=== PATIENT | female | born 1965 | race Caucasian/White ===

== ENCOUNTER 2022-05-15 15:09 | Outpatient (CLI) | payer BC, SELFPAY ==
--- NOTE | 2022-05-15 15:30 | CRLHL7_ITS ---
For Patients: As a result of the Century Cures Act, medical imaging exams and procedure reports are released immediately into your electronic medical record. You may view this report before your referring provider. If you have questions, please contact your health care provider. Indication: Cervical spine pain. Technique: MRI of the cervical spine was performed without the use of intravenous contrast. Comparison: Cervical spine radiograph 05/08/2022. Findings: There is T1 marrow infiltration with STIR hyperintensity involving the C3 vertebral body, with slight expansion. STIR hyperintensity extending into the spinous process. The remaining vertebral bodies are preserved. Mild to moderate multilevel disc height loss and desiccation. No abnormal cord signal. Partially evaluated 8 mm lesion within the left cerebellum, with adjacent T2 signal change. Partially evaluated right lung apical opacity. C2-3: No spinal canal or neural foraminal narrowing. C3-4: No spinal canal or neural foraminal narrowing. C4-5: Trace retrolisthesis. Disc bulge with minimal spinal canal narrowing. Moderate right and mild left neural foraminal narrowing secondary to uncovertebral joint and facet hypertrophy. C5-6: Trace retrolisthesis. Disc bulge with mild spinal canal narrowing. Moderately severe right and moderate left neural foraminal narrowing secondary to uncovertebral joint and facet hypertrophy. Potential impingement of the right C6 nerve. C6-7: Disc bulge with minimal spinal canal narrowing. Moderate right and [id number] left neural foraminal narrowing secondary to uncovertebral joint and facet hypertrophy. C7-T1: No spinal canal or neural foraminal narrowing. Impression: 1. Diffuse T1 hypointense infiltration with STIR hyperintensity involving the C3 vertebral body and spinous process. Partially evaluated left cerebellar lesion with adjacent T2 signal change. Constellation of findings are worrisome for metastatic disease. Dedicated MRI of the brain with contrast as well as postcontrast imaging of the cervical spine are recommended for further assessment. 2. Partially evaluated right lung apical opacity. Dedicated chest imaging with CT chest is recommended, given additional findings. 3. At C4-5, moderate right and mild left neural foraminal narrowing. 4. At C5-6, mild spinal canal with moderately severe right and moderate left neural foraminal narrowing. Potential impingement of the right C6 nerve. 5. At C6-7, moderate right and [id number] left neural foraminal narrowing. Dictated by Byron Wilkes MD @ 05/16/2022 1:22:16 PM (Electronically Signed)
== END 2022-05-15 15:10 | disposition home or self-care (01) ==
PROVIDERS: PCP Physician Assistant; Visit Provider Family Medicine
DX: M54.2 Cervicalgia (principal); M50.221 Other cervical disc displacement at C4-C5 level; M50.222 Other cervical disc displacement at C5-C6 level
CPT/HCPCS: 72141

== ENCOUNTER 2022-07-26 07:46 | Emergency (ER) | payer BC, SELFPAY ==
[2022-07-26] VITALS (29 sets, daily range): BP systolic 84–116; BP diastolic 48–76; PULSE 121–132; RESP 16–20; TEMP 36.4; O2SAT 95–100; BMI 24.7
--- NOTE | 2022-07-26 08:03 | ED_ITS ---
HPI - General Adult General Time Seen by Provider: 08:04 Date Seen: 07/26/22 Chief complaint: Shortness of Breath/Dyspnea Stated complaint: Trouble breathing Time Seen by Provider: 07/26/22 08:02 Source: patient, RN notes reviewed and old records reviewed Mode of arrival: ambulatory Limitations: no limitations History of Present Illness HPI narrative: This 57-year-old female accompanied by a gentleman whom I presume is her coming in with concern of her respiratory status. She has known stage IV lung cancer reportedly metastatic to liver and brain. Her notes that she is supposed to start chemotherapy this next week, start her steroids tomorrow and he is concerned that maybe she should be. She has had more generalized body pain that has been over 2 weeks, nothing acute over the last couple days. They have delighted for her to use. She occasionally will feel short of breath sometimes but right at this moment she is not. Her came home from work last [place] in noted just lying in bed she seemed like she was breathing abnormally. What I am observing is her doing a lot of signing, deep breathing and tachypneic. Her blood pressure is low and her pulse is in the 130s. In review of her oncology record from July 21, I do not see blood pressure listed but she was tachycardic in the 140s. She admits that eating and drinking have not been the best. She does not have any abdominal pain but just has anorexia. No acute nausea or vomiting. They do not feel that there has been any infection, no fevers. She has some baseline occasional cough but nothing new or worsening. She has no chest pain. Related Data Home Medications Medication Instructions Recorded Confirmed acetaminophen 500 mg tablet 500 - 1,000 mg PO Q6H PRN 07/21/22 07/26/22 (Tylenol Extra Strength) hydromorphone 2 mg tablet 1 mg PO Q4-6H PRN 07/21/22 07/26/22 ondansetron HCl 8 mg tablet 8 mg PO Q12H PRN 07/21/22 07/26/22 pantoprazole 40 mg tablet,delayed 40 mg PO QDAY 07/21/22 07/26/22 release (Protonix) sennosides 8.6 mg tablet (senna) 8.6 mg PO BID 07/21/22 07/26/22 Previous Rx's Medication Instructions Recorded dexamethasone 4 mg tablet 4 mg PO BID #30 tabs 07/21/22 folic acid 1 mg tablet 1 mg PO QDAY #90 tabs 07/21/22 prochlorperazine maleate 10 mg 10 mg PO TID PRN nausea and 07/21/22 tablet (Compazine) vomiting #30 tabs Allergies Allergy/AdvReac Type Severity Reaction Status Date / Time doxycycline AdvReac Severe Joints Verified 07/26/22 12:47 swell oxycodone AdvReac Intermediate vomitting/upset Verified 07/26/22 12:47 stomach Review of Systems Status of ROS: Reports: 10 or more systems reviewed and unremarkable except as noted in History and below [facility] Medical History (Updated 07/26/22 @ 13:19 by Ami Han MD) Tendonitis Family History (Updated 05/08/22 @ 14:02 by Zoë Mccarty RN) Other Diabetes Stroke Social History Narrative: Former full-time work in [employer] Smoking Status: Former smoker Do you use any of these nicotine containing products: None Second hand tobacco smoke exposure: No How often do you have a drink containing alcohol: never How often do you have six or more drinks on one occasion: Never AUDIT-C Alcohol total score: 0 Non-prescribed substance use: denies use Exam Const: Vital Signs, click to edit/add: Vital Signs - 24 hr 07/26/22 07:52 07/26/22 08:56 07/26/22 09:00 Temperature 97.5 F L Pulse Rate Pulse Rate [Right Pulse Oximeter] 131 H 122 H Respiratory Rate 20 20 Blood Pressure Blood Pressure [Ri ght Upper Arm] 89/57 L 98/54 L Pulse Oximetry 98 96 100 Oxygen Delivery Me thod Room Air Room Air 07/26/22 08:53 07/26/22 08:30 07/26/22 09:00 Temperature Pulse Rate Pulse Rate [Right Pulse Oximeter] 126 H 130 H 131 H Respiratory Rate 17 16 Blood Pressure Blood Pressure [Ri ght Upper Arm] 96/51 L 84/48 L 85/55 L Pulse Oximetry 99 100 97 Oxygen Delivery Me thod Room Air Room Air Room Air 07/26/22 08:03 07/26/22 08:04 07/26/22 08:30 Temperature Pulse Rate 130 H 132 H 129 H Pulse Rate [Right Pulse Oximeter] Respiratory Rate Blood Pressure 85/55 L Blood Pressure [Ri ght Upper Arm] Pulse Oximetry 95 95 100 Oxygen Delivery Me thod 07/26/22 08:32 07/26/22 08:54 07/26/22 09:00 Temperature Pulse Rate 130 H 126 H 123 H Pulse Rate [Right Pulse Oximeter] Respiratory Rate Blood Pressure 84/48 L 96/51 L Blood Pressure [Ri ght Upper Arm] Pulse Oximetry 99 99 99 Oxygen Delivery Me thod 07/26/22 09:01 07/26/22 09:30 07/26/22 09:31 Temperature Pulse Rate 123 H 123 H 122 H Pulse Rate [Right Pulse Oximeter] Respiratory Rate Blood Pressure 98/54 L 115/59 L Blood Pressure [Ri ght Upper Arm] Pulse Oximetry 97 98 98 Oxygen Delivery Me thod 07/26/22 10:16 07/26/22 10:18 Temperature Pulse Rate 124 H 121 H Pulse Rate [Right Pulse Oximeter] Respiratory Rate Blood Pressure 105/66 Blood Pressure [Ri ght Upper Arm] Pulse Oximetry 100 100 Oxygen Delivery Me thod Patient is lying in bed, awake but sleepy appearing. She is cachectic, tachypneic. She is observed to be tachycardic with lower blood pressure. Documenting provider has reviewed patient's vital signs: yes Common normals: oriented x3 and no limitations General appearance: cooperative, comfortable, well kempt and frail appearing Nutritional appearance: cachectic HENMT: Common normals: normocephalic, head/scalp atraumatic, hearing grossly normal bilaterally, external nose normal and nasal mucous membranes and turbinates normal Head and scalp: normocephalic and atraumatic Nose: external nose normal and nasal mucous membranes and turbinates normal Other: Speech is normal, she is appropriate but tired. Eye: Common normals: PERRL, EOMs intact bilaterally, conjunctivae normal and no scleral icterus Conjunctiva: conjunctiva(e) normal Pupil: PERRL Neck & C-Spine: Common normals: full ROM, no lymphadenopathy, supple, no meningeal signs, no JVD and thyroid normal Thyroid: thyroid normal Chest: Common normals: inspection of chest normal and palpation of chest normal Resp: Common normals: no retractions, no use of accessory muscles and clear to auscultation bilaterally (Maybe diminished breath sounds at the right base posteriorly but otherwise ) Auscultation: clear to auscultation bilaterally (Maybe diminished breath sounds at the right base posteriorly but otherwise ) Other: Is tachypneic but states she is not feeling short of breath. Is able to pull herself up in bed so that I am listening to her lungs posteriorly Cardio: Common normals: no JVD, regular rhythm, S1 normal heart sound, S2 normal heart sound, no gallops, no clicks and no murmurs Rate: tachycardic Rhythm: regular rhythm Heart sounds: S1 normal and S2 normal GI: Common normals: Normal to inspection, nondistended, normoactive bowel sounds present, soft to palpation, non-tender, no hepatosplenomegaly and no masses Palpation: soft and no hepatosplenomegaly Extremity: Common normals: normal to inspection, full ROM, normal capillary refill, no joint enlargement, no clubbing, cyanosis or edema, no calf tenderness and no pedal edema Neuro: Common normals: oriented x3, moves all extremities and no focal motor deficits Meningeal signs: no meningeal signs Speech: speech normal Psych: Appearance: well kempt Course Course Hospital Course: Have reviewed with patient tender has been that my presumption is she is quite dehydrated with metabolic acidosis and likely compensating appropriately with respiratory changes. We reviewed hyperventilation is a compensatory mechanism for metabolic acidosis with which she likely has been dehydrated. We will con racing board marker alternate diagnoses, will be getting a D-dimer to screen for need for chest CT PE protocol. If her tachycardia is largely resolving with fluid management, is very likely that this is just significant dehydration. There does not seem to be a focus of infection but will consider this in her evaluation as well. We will be doing a full complement of blood work. We will start with a screening portable chest x-ray and proceed with advance imaging if indicated in our workup. She is not hypoxic in when I was in with her her pulse oximetry was showing 96-97% with a good waveform. Reevaluation(s) Reevaluation #1: [place] [address] [place]. Have ordered urinalysis, blood cultures. We also do screening COVID in case she does need hospitalization. Have reviewed that with them, they understand with elevated white count an occult infection is certainly concerning here. Time: 09:00 Reevaluation #2: Provided the CT report to patient and her . She is having increased back pain. On talking to her and her further. He questioned if the L1 compression fracture would be consistent with a low back pain. I did review with him it was. Initially he was telling me that she just was seeming to have generalized body pain but it certainly does sound like there was definite component of low back pain. I reviewed with them that her inflammatory markers are quite high, white count elevated. Urine may be a possible source of infection but I worry there may be something occult that were missing. I am going to talk to Oncology through [facility] regarding her. I did a bit later add on lipase, uric acid, phosphorus after further considering this case, reading about tumor lysis. Time: 11:52 Consultations Consultation #1: Reviewed case with radiologist Dr. Granados. Patient's creatinine is elevated today but was normal on the 10th. Her BUN is quite elevated today and again was normal on the 10th. Reviewed that her D-dimer is elevated at 4.6. He agrees proceeding with contrast despite elevated creatinine today. We will continue hydrating her. Time: 09:50 Consultation #2: Spoke with Gladys BARAJAS at [facility] regarding transfer. She stated they were on divert. I did ask 2 consult Oncology. They did subsequently call me back, also maryanna jerome in the CCU custom decorating consultant For the day. The total phone call was 24 minutes. They are concerned about sepsis, also concerned about tumor lysis. I do not have rasburicase here. We did discuss antibiotics, that it already initiated cefepime. They did want me to proceed with vancomycin and give her 100 mg IV hydrocortisone given her adrenal lesions. The critical care officer was Dr. Wei but the accepting ICU physician is Dr. Mercer whom did call me back after the initial call. He wanted her map above 65. I did calculated in on her last pressures it was 79. Thus we will not initiate nor epinephrine. They would like her down there as quickly as possible. I have told her she will be going to [facility]. Her liver functions have come back excessively elevated but normal bilirubins. She does have increased tumor burden, thus the concern for tumor lysis with the subsequent knowledge that her uric acid and phosphate are quite high. Her potassium and calcium are normal however. She really needs to be in a multi specialty facility, we cannot provide the adequate care she needs. During patient's stay, I would assign the last 2 hours critical care which did encompass consultation and arrangement with the specialist/referral center. Time: 11:55 Vital Signs Vital signs: Initial Vital Signs Temperature 97.5 F L 07/26/22 07:52 Temperature Source Temporal Artery Scan 07/26/22 07:52 Pulse Rate 131 H 07/26/22 07:52 Pulse Rhythm 07/26/22 07:52 Respiratory Rate 20 07/26/22 07:52 Blood Pressure 89/57 L 07/26/22 07:52 Blood Pressure Mean 67 07/26/22 07:52 Blood Pressure Position Semi-Fowlers 07/26/22 07:52 Pulse Oximetry 98 07/26/22 07:52 Oxygen Delivery Method 07/26/22 07:52 Vital Signs Temperature 97.5 F L 07/26/22 07:52 Pulse Rate 131 H 07/26/22 07:52 Respiratory Rate 20 07/26/22 07:52 Blood Pressure 89/57 L 07/26/22 07:52 Pulse Oximetry 98 07/26/22 07:52 Oxygen Delivery Method 07/26/22 07:52 Temperature 97.5 F L 07/26/22 07:52 Pulse Rate 121 H 07/26/22 10:18 Respiratory Rate 16 07/26/22 09:00 Blood Pressure 105/66 07/26/22 10:18 Pulse Oximetry 100 07/26/22 10:18 Oxygen Delivery Method 07/26/22 09:00 Medical Decision Making Lab Data Lab results reviewed: Yes I reviewed the patient's lab results Labs: Lab Results 07/26/22 07/26/22 07/26/22 Range/Units 08:35 08:35 08:35 WBC 27.50 H* (4.50-11.00) K/uL RBC 3.38 L (4.00-5.20) m/uL Hgb 8.9 L (12.0-16.0) gm/dL Hct 28.5 L (33.0-51.0) % MCV 84 (80-100) fL MCH 26 (26-34) pg MCHC 31 L (32-36) gm/dL RDW Coeff of Gumaro 18.4 H (11.5-15.5) % Plt Count 444 H (140-440) K/uL Neut % (Auto) 89.0 H (42.0-72.0) % Lymph % (Auto) 3.7 L (20-44) % [place] % (Auto) 2.1 (0.0-11.0) % Eos % (Auto) 0.0 (0.0-7.0) % Baso % (Auto) 0.0 (0.0-3.0) % Neut # (Auto) 24.50 H (1.7-7.0) K/uL Lymph # (Auto) 1.00 (0.90-2.90) K/uL Cors[place] # (Auto) 0.60 (0.00-0.90) K/UL Eos # (Auto) 0.00 (0.00-0.50) K/uL Baso # (Auto) 0.00 (0.00-0.30) K/uL Abs Immat Gran (auto) 1.43 H (0.00-0.30) K/uL Diff Slide Review Acceptable Review (Acceptable) D-Dimer Quant (PE/DVT) 4.60 H (0.00-0.50) ug/ml Sodium 135 (135-149) mmol/L Potassium 4.5 (3.6-5.1) mmol/L Chloride 97 (96-114) mmol/L Carbon Dioxide 15 L (20-32) mmol/L BUN 53 H (7-30) mg/dL Creatinine 2.4 H (0.5-1.5) mg/dL Estimated Creat Clear 21.79 Estimated GFR 23 ml/min Glucose 99 (60-115) mg/dL Lactate (0.5-1.9) mmol/L Uric Acid 13.7 H (2.2-8.4) mg/dL Calcium 9.1 (8.4-10.6) mg/dL Phosphorus 8.1 H* (2.5-4.5) mg/dL Total Bilirubin 0.7 (0.1-1.5) mg/dL AST 2049 H (12-35) U/L ALT 1375 H (4-35) U/L Alkaline Phosphatase 186 H (40-150) U/L C-Reactive Protein 6.9 H (0.5-1.0) mg/dL NT-Pro-B Natriuret Pep 1930 H (0-125) PG/mL Total Protein 6.9 (6.0-8.3) g/dL Albumin 3.3 (3.3-5.0) g/dL Lipase 236 (23-300) U/L Procalcitonin > 100.00 H (<0.50) ng/mL Urine Color (Yellow) Urine Appearance (Clear) Urine pH (5.0-8.5) Ur Specific [place] (1.000-1.030) Urine Protein (Negative) Urine Glucose (UA) (Negative) Urine Ketones (Negative) Urine Blood (Negative) Urine Nitrite (Negative) Urine Bilirubin (Negative) Urine Urobilinogen (0.2-1.0) Ur Leukocyte Esterase (Negative) Urine RBC (0-2) Urine WBC (0-5) Ur Squamous Epith Cells (None-Few) Urine Bacteria (None) SARS-CoV-2 (PCR) (Negative) POC Troponin I (0.01-0.04) ng/ml 07/26/22 07/26/22 07/26/22 Range/Units 08:35 08:35 09:05 WBC (4.50-11.00) K/uL RBC (4.00-5.20) m/uL Hgb (12.0-16.0) gm/dL Hct (33.0-51.0) % MCV (80-100) fL MCH (26-34) pg MCHC (32-36) gm/dL RDW Coeff of Gumaro (11.5-15.5) % Plt Count (140-440) K/uL Neut % (Auto) (42.0-72.0) % Lymph % (Auto) (20-44) % Corson % (Auto) (0.0-11.0) % Eos % (Auto) (0.0-7.0) % Baso % (Auto) (0.0-3.0) % Neut # (Auto) (1.7-7.0) K/uL Lymph # (Auto) (0.90-2.90) K/uL Corson # (Auto) (0.00-0.90) K/UL Eos # (Auto) (0.00-0.50) K/uL Baso # (Auto) (0.00-0.30) K/uL Abs Immat Gran (auto) (0.00-0.30) K/uL Diff Slide Review (Acceptable) D-Dimer Quant (PE/DVT) (0.00-0.50) ug/ml Sodium (135-149) mmol/L Potassium (3.6-5.1) mmol/L Chloride (96-114) mmol/L Carbon Dioxide (20-32) mmol/L BUN (7-30) mg/dL Creatinine (0.5-1.5) mg/dL Estimated Creat Clear Estimated GFR ml/min Glucose (60-115) mg/dL Lactate 1.8 (0.5-1.9) mmol/L Uric Acid (2.2-8.4) mg/dL Calcium (8.4-10.6) mg/dL Phosphorus (2.5-4.5) mg/dL Total Bilirubin (0.1-1.5) mg/dL AST (12-35) U/L ALT (4-35) U/L Alkaline Phosphatase (40-150) U/L C-Reactive Protein (0.5-1.0) mg/dL NT-Pro-B Natriuret Pep (0-125) PG/mL Total Protein (6.0-8.3) g/dL Albumin (3.3-5.0) g/dL Lipase (23-300) U/L Procalcitonin (<0.50) ng/mL Urine Color (Yellow) Urine Appearance (Clear) Urine pH (5.0-8.5) Ur Specific [place] (1.000-1.030) Urine Protein (Negative) Urine Glucose (UA) (Negative) Urine Ketones (Negative) Urine Blood (Negative) Urine Nitrite (Negative) Urine Bilirubin (Negative) Urine Urobilinogen (0.2-1.0) Ur Leukocyte Esterase (Negative) Urine RBC (0-2) Urine WBC (0-5) Ur Squamous Epith Cells (None-Few) Urine Bacteria (None) SARS-CoV-2 (PCR) Negative SARS-CoV-2 (Negative) POC Troponin I 0.01 (0.01-0.04) ng/ml 07/26/22 Range/Units 10:30 WBC (4.50-11.00) K/uL RBC (4.00-5.20) m/uL Hgb (12.0-16.0) gm/dL Hct (33.0-51.0) % MCV (80-100) fL MCH (26-34) pg MCHC (32-36) gm/dL RDW Coeff of Gumaro (11.5-15.5) % Plt Count (140-440) K/uL Neut % (Auto) (42.0-72.0) % Lymph % (Auto) (20-44) % Corson % (Auto) (0.0-11.0) % Eos % (Auto) (0.0-7.0) % Baso % (Auto) (0.0-3.0) % Neut # (Auto) (1.7-7.0) K/uL Lymph # (Auto) (0.90-2.90) K/uL Corson # (Auto) (0.00-0.90) K/UL Eos # (Auto) (0.00-0.50) K/uL Baso # (Auto) (0.00-0.30) K/uL Abs Immat Gran (auto) (0.00-0.30) K/uL Diff Slide Review (Acceptable) D-Dimer Quant (PE/DVT) (0.00-0.50) ug/ml Sodium (135-149) mmol/L Potassium (3.6-5.1) mmol/L Chloride (96-114) mmol/L Carbon Dioxide (20-32) mmol/L BUN (7-30) mg/dL Creatinine (0.5-1.5) mg/dL Estimated Creat Clear Estimated GFR ml/min Glucose (60-115) mg/dL Lactate (0.5-1.9) mmol/L Uric Acid (2.2-8.4) mg/dL Calcium (8.4-10.6) mg/dL Phosphorus (2.5-4.5) mg/dL Total Bilirubin (0.1-1.5) mg/dL AST (12-35) U/L ALT (4-35) U/L Alkaline Phosphatase (40-150) U/L C-Reactive Protein (0.5-1.0) mg/dL NT-Pro-B Natriuret Pep (0-125) PG/mL Total Protein (6.0-8.3) g/dL Albumin (3.3-5.0) g/dL Lipase (23-300) U/L Procalcitonin (<0.50) ng/mL Urine Color Brown A (Yellow) Urine Appearance Clear (Clear) Urine pH 5.0 (5.0-8.5) Ur Specific [place] 1.025 (1.000-1.030) Urine Protein 1+ A (Negative) Urine Glucose (UA) Negative (Negative) Urine Ketones 1+ A (Negative) Urine Blood Negative (Negative) Urine Nitrite Negative (Negative) Urine Bilirubin 2+ A (Negative) Urine Urobilinogen 0.2 (0.2-1.0) Ur Leukocyte Esterase 1+ A (Negative) Urine RBC 0-2 (0-2) Urine WBC 10-25 A (0-5) Ur Squamous Epith Cells Few (None-Few) Urine Bacteria Moderate A (None) SARS-CoV-2 (PCR) (Negative) POC Troponin I (0.01-0.04) ng/ml Imaging Data Chest x-ray: Attestation: I have reviewed the pertinent imaging results. My impression: Did review patient's chest x-ray before radiology report in do see fluid and changes on the right side. In review of her records, I a do see notation that her cancer is known to be on the right side. Radiologist's impression: Patient: DEVI FRIED Facility:?[facility] Patient ID:?[id number] Site Patient ID:?[id number]. Site :?[id number] Study:?XRay Chest PORTABLE-07/26/2022 8:31:46 AM Ordering Physician:Latasha Mueller Final Report: INDICATION: Shortness of breath. History of lung cancer. COMPARISON: None. FINDINGS: A portable AP view of the chest was obtained. The cardiac silhouette and pulmonary vasculature are within normal limits. The left lung is clear. There is a small right pleural effusion. There is a masslike opacity in the right mid to lower lung medially. There is no pneumothorax. IMPRESSION: Small right pleural effusion. Masslike opacity in the right mid to lower lung medially. This could be the patient`s known lung cancer and/or consolidation. Dictated by Levi Bettencourt MD @ 07/26/2022 8:36:55 AM (Electronic Signature) CT Chest/Ab/Pelvis: Attestation: I have reviewed the pertinent imaging results. Radiologist's impression: Patient: DEVI FRIED Facility:?[facility] Patient ID:?[id number] Site Patient ID:?[id number]. Site :?[id number] Study:?CT Chest/Abd/Pelvis PE A/P WITH 95CC ISOVUE 370-07/26/2022 10:25:30 AM Ordering Physician:Latasha Mueller Final Report: INDICATION: Shortness of breath and elevated white blood cell count and D-dimer. History of stage IV lung cancer. TECHNIQUE: CT chest PE protocol and CT abdomen and pelvis acquired with IV contrast. 95 mL IV Isovue 370. COMPARISON: CT chest, abdomen and pelvis 06/03/2022. FINDINGS: Chest: There is no acute pulmonary embolism. Heart size is normal. Thoracic aorta and main pulmonary artery are normal in caliber. There are enlarged mediastinal and right hilar lymph nodes. Similar to the prior exam. No axial or left hilar lymphadenopathy. Redemonstrated large complex heterogeneous the enhancing mass in the right lower lobe measuring 8.7 x 7.6 cm (series 12, image 113), unchanged causing severe narrowing of the right lower lobe pulmonary artery and occlusion of the right l ower lobe bronchus. There is a moderate pleural effusion which is decreased in size compared to the previous exam. Compared to the prior exam the right middle lobe is better aerated. There is a 1.8 x 1.5 cm nodule in the right upper lobe (series 13, image 53), previously 1.2 x 1.2 cm. Multiple nodules in the left lower lobe have also increased in size. The largest is in the right lower lobe and measures 1.8 x 1.1 cm, previously 1 x 0.7 cm. There is a new 3 mm nodule in the left upper lobe (series 13, image 57). Abdomen and Pelvis: Hepatic metastases are increased in size. The larger in the right lobe of the liver measures 4.2 x 3.9 cm, previously 2 x 1.4 cm. There is a new adjacent 1 cm metastasis. Bilateral adrenal masses have increased in size. The mass on the left measures 6 x 4.3 cm (series 8, image 28) and on the right measures 4.4 x 2.1 cm (series 8, image 30). The gallbladder is distended but there is no evidence of inflammation or radiopaque stone. Calcified splenic granulomata. Pancreas enhances homogeneously. No bowel obstruction or inflammation. No abdominal ascites or free air. Moderate atherosclerotic calcification of the abdominal aorta. No abdominal or pelvic lymphadenopathy. The urinary bladder is moderately distended and appears normal. Left ovarian cysts are re- demonstrated. There is a new sclerotic lesion in the L1 vertebral body consistent with metast asis. There is mild irregularity of the left lateral superior endplate of L1 suspicious for pathologic compression fracture. IMPRESSION: 1. No acute pulmonary embolism. 2. Increase in size and number of pulmonary and hepatic metastases. 3. Increase in size of adrenal metastases. 4. New L1 vertebral body osseous metastasis with possible mild pathologic compression fracture. Please note that all CT scans at this facility use dose modulation, iterative reconstruction, and/or weight-based dosing when appropriate to reduce radiation dose to as low as reasonably achievable. Dictated by Philly Hughes MD @ 07/26/2022 11:29:31 AM (Electronic Signature) ECG Data Attestation: I personally reviewed and interpreted this ECG as follows: (Sinus tachycardia with short [place] interval. Nonspecific ST-T/T-wave changes. No evidence for acute ischemia. QT corrected 438 milliseconds) Prior ECG tracings: not available for review Critical Care Time Critical Care Time Critical Care Time: Yes Attestation: The patient required my highest level preparedness to intervene emergently and I personally spent this critical care time directly and personally managing the patient. This critical care time included: Obtaining a history; Examining the patient; Pulse oximetry; Ordering and reviewing of studies; Arranging urgent treatment with development of a management plan; Evaluation of patients response to treatment; Frequent reassessment discussions with other providers. This critical care time was performed to assess and manage the high probability of imminent life-threatening deterioration that could result in multiorgan failure. It was exclusive of separate billable procedures and treating other patients and teaching time. Total Critical Care Time in Minutes: 120 Discharge Plan Discharge Clinical Impression: Stage IV adenocarcinoma of lung, Hepatitis, Tumor lysis syndrome, Cancer, metastatic to liver, Sepsis Patient Disposition: [facility] Discharge Location: [facility] Prescriptions: No Action hydromorphone 2 mg tablet 1 mg PO Q4-6H PRN acetaminophen [Tylenol Extra Strength] 500 mg tablet 500 - 1,000 mg PO Q6H PRN sennosides [senna] 8.6 mg tablet 8.6 mg PO BID ondansetron HCl 8 mg tablet 8 mg PO Q12H PRN pantoprazole [Protonix] 40 mg tablet,delayed release (DR/EC) 40 mg PO QDAY folic acid 1 mg tablet 1 mg PO QDAY Qty: 90 1RF prochlorperazine maleate [Compazine] 10 mg tablet 10 mg PO TID PRN (Reason: nausea and vomiting) Qty: 30 1RF dexamethasone 4 mg tablet 4 mg PO BID Qty: 30 4RF Rx Instructions: 4 mg po BID for 3 days starting the day before each cycle of chemotherapy Follow Up/Referrals: Jeanne Arrington PA [Primary Care Provider] - Stand Alone Forms: [facility] Info Instructions
--- NOTE | 2022-07-26 08:11 | CRLHL7_ITS ---
For Patients: As a result of the Century Cures Act, medical imaging exams and procedure reports are released immediately into your electronic medical record. You may view this report before your referring provider. If you have questions, please contact your health care provider. INDICATION: Shortness of breath. History of lung cancer. COMPARISON: None. FINDINGS: A portable AP view of the chest was obtained. The cardiac silhouette and pulmonary vasculature are within normal limits. The left lung is clear. There is a small right pleural effusion. There is a masslike opacity in the right mid to lower lung medially. There is no pneumothorax. IMPRESSION: Small right pleural effusion. Masslike opacity in the right mid to lower lung medially. This could be the patient`s known lung cancer and/or consolidation. Dictated by Levi Bettencourt MD @ 07/26/2022 8:36:55 AM (Electronically Signed)
[2022-07-26 08:44] LABS: Lactate* 1.8 mmol/L (0.5-1.9)
[2022-07-26 08:46] LABS: Hematocrit 28.5 % (33.0-51.0); Hemoglobin* 8.9 gm/dL (12.0-16.0); Immature Granulocytes Abs Auto 1.43 K/uL (0.00-0.30); Lymphocytes Percent Auto 3.7 % (20-44); Mean Corpuscular HGB Conc 31 gm/dL (32-36); Mean Corpuscular Hemoglobin 26 pg (26-34); Mean Corpuscular Volume 84 fL (80-100); Monocytes Percent Auto 2.1 % (0.0-11.0); Platelet Count* 444 K/uL (140-440); RDW Coefficient of Variation % 18.4 % (11.5-15.5); Red Blood Count 3.38 m/uL (4.00-5.20)
[2022-07-26] MEDS: 0.9 % SODIUM CHLORIDE 1000 ml 1,000 ML IV (08:46)
[2022-07-26 08:51] LABS: Slide Review Acceptable Review (Acceptable); Slide Review Reflex Yes
[2022-07-26 08:52] LABS: Troponin, Point-of-Care* 0.01 ng/ml (0.01-0.04)
[2022-07-26 09:02] LABS: Albumin* 3.3 g/dL (3.3-5.0); Chloride* 97 mmol/L (96-114); Sodium* 135 mmol/L (135-149)
[2022-07-26 09:03] LABS: Potassium* 4.5 mmol/L (3.6-5.1)
[2022-07-26 09:05] LABS: Alkaline Phosphatase* 186 U/L (40-150); Bilirubin Total* 0.7 mg/dL (0.1-1.5); Blood Urea Nitrogen* 53 mg/dL (7-30); Carbon Dioxide* 15 mmol/L (20-32); Creatinine* 2.4 mg/dL (0.5-1.5); Est. Creatinine Clearance* 21.79; Estimated Glomerular Filt Rate 23 ml/min; Total Protein* 6.9 g/dL (6.0-8.3)
[2022-07-26 09:06] LABS: Calcium* 9.1 mg/dL (8.4-10.6); Glucose* 99 mg/dL (60-115)
[2022-07-26 09:08] LABS: C Reactive Protein* 6.9 mg/dL (0.5-1.0)
[2022-07-26 09:15] LABS: NT Pro B Type NatriureticPept* 1930 PG/mL (0-125)
--- NOTE | 2022-07-26 09:37 | CRLHL7_ITS ---
For Patients: As a result of the 21st Century Cures Act, medical imaging exams and procedure reports are released immediately into your electronic medical record. You may view this report before your referring provider. If you have questions, please contact your health care provider. INDICATION: Shortness of breath and elevated white blood cell count and D-dimer. History of stage IV lung cancer. TECHNIQUE: CT chest PE protocol and CT abdomen and pelvis acquired with IV contrast. 95 mL IV Isovue 370. COMPARISON: CT chest, abdomen and pelvis 06/03/2022. FINDINGS: Chest: There is no acute pulmonary embolism. Heart size is normal. Thoracic aorta and main pulmonary artery are normal in caliber. There are enlarged mediastinal and right hilar lymph nodes. Similar to the prior exam. No axial or left hilar lymphadenopathy. Redemonstrated large complex heterogeneous the enhancing mass in the right lower lobe measuring 8.7 x 7.6 cm (series 12, image 113), unchanged causing severe narrowing of the right lower lobe pulmonary artery and occlusion of the right lower lobe bronchus. There is a moderate pleural effusion which is decreased in size compared to the previous exam. Compared to the prior exam the right middle lobe is better aerated. There is a 1.8 x 1.5 cm nodule in the right upper lobe (series 13, image 53), previously 1.2 x 1.2 cm. Multiple nodules in the left lower lobe have also increased in size. The largest is in the right lower lobe and measures 1.8 x 1.1 cm, previously 1 x 0.7 cm. There is a new 3 mm nodule in the left upper lobe (series 13, image 57). Abdomen and Pelvis: Hepatic metastases are increased in size. The larger in the right lobe of the liver measures 4.2 x 3.9 cm, previously 2 x 1.4 cm. There is a new adjacent 1 cm metastasis. Bilateral adrenal masses have increased in size. The mass on the left measures 6 x 4.3 cm (series 8, image 28) and on the right measures 4.4 x 2.1 cm (series 8, image 30). The gallbladder is distended but there is no evidence of inflammation or radiopaque stone. Calcified splenic granulomata. Pancreas enhances homogeneously. No bowel obstruction or inflammation. No abdominal ascites or free air. Moderate atherosclerotic calcification of the abdominal aorta. No abdominal or pelvic lymphadenopathy. The urinary bladder is moderately distended and appears normal. Left ovarian cysts are re- demonstrated. There is a new sclerotic lesion in the L1 vertebral body consistent with metastasis. There is mild irregularity of the left lateral superior endplate of L1 suspicious for pathologic compression fracture. IMPRESSION: 1. No acute pulmonary embolism. 2. Increase in size and number of pulmonary and hepatic metastases. 3. Increase in size of adrenal metastases. 4. New L1 vertebral body osseous metastasis with possible mild pathologic compression fracture. Please note that all CT scans at this facility use dose modulation, iterative reconstruction, and/or weight-based dosing when appropriate to reduce radiation dose to as low as reasonably achievable. Dictated by Philly Hughes MD @ 07/26/2022 11:29:31 AM (Electronically Signed)
[2022-07-26] MEDS: 0.9 % SODIUM CHLORIDE 1000 ml 1,000 ML 500 ML IV ×2 (09:41→12:09)
[2022-07-26 10:01] LABS: SARS PCR* Negative SARS-CoV-2 (Negative)
[2022-07-26 10:10] LABS: Alanine Aminotransferase* 1375 U/L (4-35); Aspartate Amino Transferase* 2049 U/L (12-35); Procalcitonin* > 100.00 ng/mL (<0.50)
[2022-07-26 10:43] LABS: Appearance Urine Clear (Clear); Bilirubin Urine 2+ (Negative); Blood Urine Negative (Negative); Color Urine Brown (Yellow); Glucose Urine Negative (Negative); Ketones Urine 1+ (Negative); Leukocyte Esterase Urine 1+ (Negative); Nitrite Urine Negative (Negative); Protein Urine 1+ (Negative); Specific Gravity Urine 1.025 (1.000-1.030); Urobilinogen Urine 0.2 (0.2-1.0)
[2022-07-26 10:52] LABS: Bacteria Urine Moderate; RBC Urine 0-2 (0-2); Squamous Epithelial Cell Urine Few (None-Few)
[2022-07-26 12:23] LABS: Lipase* 236 U/L (23-300); Uric Acid* 13.7 mg/dL (2.2-8.4)
[2022-07-26 12:29] LABS: Phosphorus* 8.1 mg/dL (2.5-4.5)
--- NOTE | 2022-07-26 12:31 | ED.NURSE ---
Critical lab: phosphorus 8.1
[2022-07-26] MEDS: CEFEPIME HCL 2 GM in 0.9 % SODIUM CHLORIDE Mini-bag 100 ML IVPB (12:35)
[2022-07-26] MEDS: HYDROCORTISONE SOD SUCCINATE 50 MG/ML inj 100 MG IVP (12:43)
--- NOTE | 2022-07-26 13:36 | ED.NURSE ---
Malvin called and aware that she will be going to [facility] in [place], room 311. was up to void on commode voided approx 300 ml of dark straw colored urine.
--- NOTE | 2022-07-26 14:29 | ED.NURSE ---
to [facility] via [facility]. report was given to husam madrid at [facility].
== END 2022-07-26 14:25 | disposition short-term general hospital (02) ==
PROVIDERS: Emergency Provider Family Medicine; PCP Physician Assistant
DX: C34.90 Malignant neoplasm of unspecified part of unspecified bronchus or lung (principal); C78.7 Secondary malignant neoplasm of liver and intrahepatic bile duct; A41.9 Sepsis, unspecified organism
CPT/HCPCS: 36415; 71045; 71260; 74177; 80053; 81001; 83605; 83690; 83880; 84100; 84145; 84550; 85025; 85379; 86140; 87040; 87086; 87635; 93005; 94761; 96365; 96366; 99284; 99285; 99291; 99292; J0692; J1720; J3370; J7030; J7120; Q9967

== ENCOUNTER 2022-07-28 09:30 | Outpatient (RCR) | payer BC, SELFPAY ==
[2022-07-21 12:40] LABS: Basophils Percent Auto 0.1 % (0.0-3.0); Eosinophils Percent Auto 0.2 % (0.0-7.0); Hematocrit 30.2 % (33.0-51.0); Hemoglobin* 9.5 gm/dL (12.0-16.0); Immature Granulocytes Abs Auto 0.23 K/uL (0.00-0.30); Lymphocytes Percent Auto 6.9 % (20-44); Mean Corpuscular HGB Conc 32 gm/dL (32-36); Mean Corpuscular Hemoglobin 26 pg (26-34); Mean Corpuscular Volume 83 fL (80-100); Monocytes Percent Auto 4.4 % (0.0-11.0); Neutrophils Percent Auto 87.1 % (42.0-72.0); Platelet Count* 305 K/uL (140-440); RDW Coefficient of Variation % 16.3 % (11.5-15.5); Red Blood Count 3.64 m/uL (4.00-5.20); White Blood Count* 17.37 K/uL (4.50-11.00)
[2022-07-21] MEDS: CYANOCOBALAMIN 1,000 MCG/ML inj 1000 MCG SUBCUT (12:44)
[2022-07-21 12:47] LABS: Slide Review Reflex No
--- NOTE | 2022-07-21 12:52 | ONC.NURNOTE ---
[employer] attended initial visit with Dr Fowler with patient and friend Plan to start chemo next week via a peripheral IV- will consider a line if needed Calendar given with next weeks appt Lab done today Instructions given on starting Dex BID the day before chemo (07/27/22) the day of and the day after chemo- written on calendar patient prefers teaching the day she starts chemo Vit B12 given today instructions to start Folic Acid today
[2022-07-21 13:01] LABS: Albumin* 3.6 g/dL (3.3-5.0); Chloride* 95 mmol/L (96-114); Sodium* 132 mmol/L (135-149)
[2022-07-21 13:02] LABS: Potassium* 4.3 mmol/L (3.6-5.1)
[2022-07-21 13:04] LABS: Alanine Aminotransferase* 10 U/L (4-35); Alkaline Phosphatase* 165 U/L (40-150); Aspartate Amino Transferase* 20 U/L (12-35); Bilirubin Total* 0.4 mg/dL (0.1-1.5); Blood Urea Nitrogen* 24 mg/dL (7-30); Carbon Dioxide* 17 mmol/L (20-32); Creatinine* 0.9 mg/dL (0.5-1.5); Estimated Glomerular Filt Rate 74 ml/min; Glucose* 108 mg/dL (60-115); Total Protein* 7.5 g/dL (6.0-8.3)
[2022-07-21 13:05] LABS: Calcium* 10.2 mg/dL (8.4-10.6)
--- NOTE | 2022-07-23 15:45 | ONC.NURNOTE ---
Left message on voice mail reminder to start 1 mg folic acid now- needs to be on for 5 days before starting chemo reminder to start the steroids on Thursday- the day before her chemo
--- NOTE | 2022-07-28 11:50 | ONC.NURNOTE ---
Chemo start on hold today- inpatient at [place]
--- NOTE | 2022-07-29 09:58 | URNOTE ---
Received request for prior auth for Pembrolizumab (J9271). Carboplatin (J9045), Pemtrexed (J9305), and Aloxi (J2469). Per Anastasia at [facility] beds at the [facility], prior auth is not needed for these medications. Call ref #[id number]
--- NOTE | 2022-08-05 10:44 | ONC.NURNOTE ---
Patient has been an inpatient at [facility] and has been referred to to hospice appts here have been canceled
== END 2022-08-12 23:59 | disposition home or self-care (01) ==
LOC: CCIC 09:30
PROVIDERS: PCP Physician Assistant; Referring Provider Physician Assistant; Visit Provider Internal Medicine Medical Oncology
DX: C34.90 Malignant neoplasm of unspecified part of unspecified bronchus or lung (principal); C79.51 Secondary malignant neoplasm of bone; C78.7 Secondary malignant neoplasm of liver and intrahepatic bile duct; C79.31 Secondary malignant neoplasm of brain; M54.2 Cervicalgia
CPT/HCPCS: 36415; 80053; 85025; 96372; 99202; 99205; J3420